=== PATIENT | female | born 1960 | race Caucasian/White ===

== ENCOUNTER 2017-08-25 15:19 | Outpatient (CLI) | payer BC | END 2017-08-25 15:20 | disposition home or self-care (01) | LOC: BICMAMMO 15:19 | PROVIDERS: ATTEND Family Medicine | DX: Z00.00 Encounter for general adult medical examination without abnormal findings (principal) | CPT/HCPCS: 77063; 77067 ==

== ENCOUNTER 2017-11-21 11:07 | Inpatient (IN) | payer BC ==
--- NOTE | 2017-11-21 12:12 | RAD ---
CHEST 1 VIEW: HISTORY: Chest pain. COMPARISON: Chest radiograph 2015. FINDINGS: There is left basilar airspace opacity. There are some faint right lower lobe airspace opacities. N o pneumothorax. No large effusion. IMPRESSION: Multifocal airspace opacities concerning for a multifocal infection. Followup after treatment recomm ended. POS: [facility]
[2017-11-21 12:16] LABS: Hemoglobin 13.1 g/dL (12.0-16.0); Mean Corpuscular HGB CONC 32.6 g/dL (32.0-36.0); Mean Corpuscular Hemoglobin 30.8 pg (27.0-31.0); Mean Corpuscular Volume 94.5 fL (78.0-98.0); Mean Platelet Volume 7.3 fL (7.4-10.4); Platelet Count 416 thou/uL (130-400); RBC Distribution Width 11.7 % (11.5-14.5); Red Blood Cell (RBC) Count 4.25 mill/uL (4.20-5.40)
[2017-11-21] MEDS ORDERED: Sodium Chloride 0.9% 100 ML ONE (12:16)
[2017-11-21] MEDS ORDERED: Azithromycin 500 MG VIAL ONE (12:16)
[2017-11-21] MEDS ORDERED: cefTRIAXone\\ROCEPHIN 1 GM VIAL ONE (12:16)
[2017-11-21] MEDS ORDERED: Ketorolac Tromethamine 30 MG/ML VIAL ONE (12:16)
[2017-11-21] MEDS ORDERED: Acetaminophen 500 MG TAB ONE (12:16)
[2017-11-21 12:30] LABS: ALT (SGPT) 13 U/L (8-55); AST (SGOT) 10 U/L (5-34); Albumin 3.5 g/dL (3.5-5.0); Alkaline Phosphatase 116 U/L (40-150); Anion Gap 13 mmol/L (10-20); BUN (Urea Nitrogen) 12 mg/dL (9.8-20.1); Bilirubin, Total 1.1 mg/dL (0.2-1.2); Calc. Creatinine Clearance 0 mL/min (70-130); Calcium 9.1 mg/dL (7.8-10.44); Carbon Dioxide 26 mmol/L (22-29); Chloride 101 mmol/L (98-107); Estimated GFR-MDRD 77; Globulin 3.5 g/dL (2.4-3.5); Glucose 131 mg/dL (70-105); Potassium 3.4 mmol/L (3.5-5.1); Sodium 137 mmol/L (136-145)
[2017-11-21 12:45] LABS: White Blood Cell (WBC) Count 27.6 thou/uL (4.8-10.8)
[2017-11-21 13:35] LABS: Band 3 % (5-11); Eosinophils 1 % (0-10); Lymphocytes 5 % (21-51); MDiff Complete? YES; Monocytes 5 % (0-10); Neutrophil 86 % (42-75); PLT Morphology Comment Appears Adequate; RBC Morphology Normal
[2017-11-21] MEDS ORDERED: Acetaminophen 325 MG TAB PO PRN (14:22)
[2017-11-21 14:54] VITALS: BMI 33.6
[2017-11-21] MEDS ORDERED: Azithromycin 500 MG in Sodium Chloride 0.9% 250 ML 250 ML IVPB SCH (15:00)
--- NOTE | 2017-11-21 19:49 | HP ---
DATE OF ADMISSION: 11/21/2017 PRIMARY CARE PHYSICIAN: Dr. Power Collado. CHIEF COMPLAINT: Cough and shortness of breath. HISTORY OF PRESENT ILLNESS: This is a 57-year-old female smoker, is a patient of Dr. Power Collado's, presents to the emergency department with 1 week of worsening cough, fever, and shortness of breath. The patient states that she presented to outpatient office on 11/17/2017 with cough and fever, was diagnosed and treated for presumptive influenza, started on Tamiflu at that time due to her cough, leobardo dy aches, and temperature up to 101. She states that her lung exam was normal at that time. She did not improve with the Tamiflu and 2 days ago called the office stating that she was still sick and wa s not able to be seen on that day. Over the weekend, she continued to worsen. She presented to the emergency department and was found to be mild to moderately hypoxic until they put oxygen on, continu ed to have cough and fever up to 101. On workup, she was found to have a multilobar pneumonia and is now being admitted for further evaluation and treatment. PAST MEDICAL HISTORY: Positive smoking, positive hypertension, positive COPD and asthma. MEDICATIONS: Symbicort daily, blood pressure medicine. She is uncertain of the name. PAST SURGICAL HISTORY: x4, back surgery x2, history of total abdominal hysterectomy. ALLERGIES: CODEINE and possible SULFA, but she is uncertain. FAMILY HISTORY: Noncontributory. REVIEW OF SYSTEMS: As per the history of present illness. General: Positive fever, positive chills . Positive myalgias. HEENT: No headache, visual or hearing changes. Positive upper respiratory co ngestion. Cardiac: Denies chest pain or palpitations. Pulmonary: Positive cough, positive shortne ss of breath, no hemoptysis. Gastrointestinal: Some nausea, no vomiting or diarrhea. Genitourinary : No dysuria or hematuria. Neurologic: Denies weakness, seizures, or syncope. PHYSICAL EXAMINATION: VITAL SIGNS: Temperature up to 101, pulse of 75 and regular, respirations 14-16, blood pressure 135/ 80, pulse ox down to 94% on room air and up to 95%-98% on 2 liters nasal cannula. GENERAL: She is awake, alert, in no acute distress. Speech is clear. Mucosa is moist. NECK: Supple. HEART: Regular rate and rhythm. LUNGS: With decreased breath sounds throughout. Positive rhonchi, worse on the left lower lobe. ABDOMEN: Soft. EXTREMITIES: No clubbing, cyanosis or edema, 2+ peripheral pulses bilaterally. LABORATORY DATA: White blood cell count 27,600, hemoglobin and hematocrit 13.1 and 40.2, platelets 4 16, neutrophils 86%, bands 3%, lymphocytes, 5%. Sodium 137, potassium 3.4, chloride 101, CO2 of 26, BUN and creatinine 12 and 0.77. Serum glucose of 131. Lactic acid was normal at 1.3. Chest x-ray r evealed multilobar infiltrate with more consolidation in the left base. No effusion. ASSESSMENT AND PLAN: 1. This is a 57-year-old female smoker with a history of chronic obstructive pulmonary disease and h ypertension, now with multifocal pneumonia and chronic obstructive pulmonary disease exacerbation. W e will admit to the general medical floor. We will continue antibiotics, neb treatments, and steroid s. 2. Hypertension. We will continue her home medications. We will recheck chest x-ray and labs in th e morning. 3. Deep vein thrombosis prophylaxis with Lovenox. 4. GI protection with Protonix while starting steroids.
[2017-11-22 05:43] LABS: ALT (SGPT) 12 U/L (8-55); AST (SGOT) 10 U/L (5-34); Albumin 3.1 g/dL (3.5-5.0); Alkaline Phosphatase 113 U/L (40-150); Anion Gap 11 mmol/L (10-20); BUN (Urea Nitrogen) 14 mg/dL (9.8-20.1); Bilirubin, Total 0.4 mg/dL (0.2-1.2); Calc. Creatinine Clearance 108 mL/min (70-130); Calcium 9.2 mg/dL (7.8-10.44); Carbon Dioxide 25 mmol/L (22-29); Chloride 105 mmol/L (98-107); Estimated GFR-MDRD 77; Globulin 3.2 g/dL (2.4-3.5); Glucose 179 mg/dL (70-105); Potassium 3.6 mmol/L (3.5-5.1); Protein, Total 6.3 g/dL (6.0-8.3); Sodium 137 mmol/L (136-145)
[2017-11-22 06:08] LABS: Band 1 % (5-11); Hemoglobin 11.7 g/dL (12.0-16.0); Lymphocytes 2 % (21-51); MDiff Complete? YES; Mean Corpuscular HGB CONC 32.3 g/dL (32.0-36.0); Mean Corpuscular Hemoglobin 30.7 pg (27.0-31.0); Mean Corpuscular Volume 95.3 fL (78.0-98.0); Mean Platelet Volume 7.7 fL (7.4-10.4); Monocytes 1 % (0-10); Neutrophil 96 % (42-75); PLT Morphology Comment Appears Adequate; Platelet Count 383 thou/uL (130-400); RBC Distribution Width 11.8 % (11.5-14.5); RBC Morphology Normal; Red Blood Cell (RBC) Count 3.81 mill/uL (4.20-5.40); White Blood Cell (WBC) Count 26.4 thou/uL (4.8-10.8)
--- NOTE | 2017-11-22 07:56 | RAD ---
PORTABLE CHEST: History: Pneumonia. Comparison: 11-21-17 FINDINGS: Confluent infiltrate in the left mid and lower lung is again seen. Patchy areas of opacity in the rig ht lower lung are less pronounced than on the current study. IMPRESSION: Persistent infiltrate in the left mid and lower lung. POS: [facility]
[2017-11-22] MEDS: Enoxaparin Sodium 40 MG/0.4 ML SYRINGE SC SCH (09:05)
[2017-11-22] MEDS: cefTRIAXone\\ROCEPHIN 1 GM in Sodium Chloride 0.9% 100 ML IVPB SCH (12:22)
[2017-11-22] MEDS: Ibuprofen 600 MG TAB PO PRN ×2 (12:25→19:56)
--- NOTE | 2017-11-22 13:06 | PRG ---
DATE OF SERVICE: 11/22/2017 HISTORY OF PRESENT ILLNESS: The patient remains dyspneic after a small activity such as taking a rozina wer today. She was able to do so with oxygen needs however, still saturating in the low 90s on 2-3 l iters nasal cannula. The patient continues to wheeze, feels more comfortable on oxygen. No reported fevers. The patient states she has had a longstanding history of hematuria and was supposed to have a CAT scan performed today on an outpatient basis. Denies any current flank pain, but does report d ysuria. She has been on antibiotics for pneumonia, Rocephin and azithromycin since admission. The p atient denies any gross hematuria. However, review of outpatient chart shows that hematuria has occu rred since 2013. Last known clear sample was in 2009. VITAL SIGNS: Temperature of 97.7, pulse of 106. Respiratory rate of 20, oxygen saturation 91% on 3 liters nasal cannula, blood pressure 118/80. LABORATORY DATA: White blood cell count of 26.4, platelet count of 383. Sodium 137, potassium of 3. 6, creatinine of 0.77, glucose of 179. AST of 10, ALT of 12, albumin of 3.1. Chest x-ray this a.m.; continued left mid and lower lung infiltrates. PHYSICAL EXAMINATION: GENERAL: The patient is alert and oriented, short of breath following a shower. Nasal cannula in pl sai. HEENT: Head is normocephalic, atraumatic. Extraocular movements are intact. Oral mucosa is moist. NECK: Supple. HEART: Tachycardic, but regular rhythm. LUNGS: Diminished bilateral bases. Bronchial breath sounds with expiratory wheezes bilaterally. ABDOMEN: Soft, nontender, positive bowel sounds throughout. No CVA tenderness, no suprapubic tender ness currently. EXTREMITIES: Lower extremities without cyanosis or edema. NEUROLOGIC: The patient is alert and oriented x3, no focal deficits. Speech is normal. ASSESSMENT AND PLAN: Community-acquired pneumonia, chronic obstructive pulmonary disease exacerbatio n, hypertension, acute respiratory failure requiring oxygen. Hematuria. We will follow up on urinalysis. If any hematuria given the patient's dysuria despite antibiotic michelle atment, we will potentially perform CT while inpatient. Blood cultures no growth at 24 hours. Sched uling breathing treatments. The patient is still actively wheezing. Since the patient is not in ICU we will move to oral steroids. Continue IV antibiotics for pneumonia, community acquired. Continui ng home blood pressure medication for hypertension.
[2017-11-22] MEDS ORDERED: Azithromycin 500 MG in Sodium Chloride 0.9% 250 ML 250 ML IVPB SCH (15:00)
[2017-11-22 20:16] LABS: Bilirubin Negative (Negative); Blood, Urine Trace (Negative); Clarity CLEAR (Clear); Glucose, Urine (Dipstick) Negative (Negative); Leukocyte Negative (Negative); Nitrite Negative (Negative); Protein, Urine (Dipstick) Negative (Neg-Trace); Urobilinogen 0.2 mg/dL (0.2-1.0); pH, Urine 6.5 (5.0-9.0)
[2017-11-22 20:19] LABS: Bacteria/HPF None Seen HPF (None Seen); Hyaline Casts/LPF 0-3 HYALINE CAST LPF (0-3 Hyaline); Pathc Cast-AUWi Flag 0.58 (0-2.49); Squamous Epithelial 0-3 HPF (0-3); WBC/HPF None Seen HPF (0-3)
[2017-11-22 22:35] LABS: Creatinine, Urine 41.83 mg/dL (47-110); Microalbumin Urine Less than 1.0 mg/dL (0.5-50.0)
[2017-11-22] MEDS ORDERED: diphenhydrAMINE 25 MG CAP PO PRN (22:35)
[2017-11-23 05:19] LABS: Band 9 % (5-11); Hemoglobin 10.8 g/dL (12.0-16.0); Hypochromia SLIGHT = 6-15 cells (100X) (0-5/hpf); Lymphocytes 2 % (21-51); MDiff Complete? YES; Mean Corpuscular HGB CONC 31.9 g/dL (32.0-36.0); Mean Corpuscular Hemoglobin 30.3 pg (27.0-31.0); Mean Platelet Volume 7.8 fL (7.4-10.4); Monocytes 6 % (0-10); Neutrophil 83 % (42-75); PLT Morphology Comment Appears Adequate; Platelet Count 414 thou/uL (130-400); Red Blood Cell (RBC) Count 3.56 mill/uL (4.20-5.40); White Blood Cell (WBC) Count 32.6 thou/uL (4.8-10.8)
[2017-11-23] MEDS: Ibuprofen 600 MG TAB PO PRN ×2 (06:23→21:10)
[2017-11-23] MEDS ORDERED: predniSONE 20 MG TAB PO SCH (08:00)
[2017-11-23] MEDS: Enoxaparin Sodium 40 MG/0.4 ML SYRINGE SC SCH (08:40)
[2017-11-23] MEDS: cefTRIAXone\\ROCEPHIN 1 GM in Sodium Chloride 0.9% 100 ML IVPB SCH (12:02)
--- NOTE | 2017-11-23 13:18 | PRG ---
DATE OF SERVICE: 11/23/2017 HISTORY OF PRESENT ILLNESS: The patient states she has had a more productive sputum following schedu led breathing treatments, still feels fatigued today on attempts to wean oxygen, saturations dipping into the high 80s off nasal cannula here at lunch for the first time today. The patient continues to not be able to ambulate very far, was sleeping on 3 liters nasal cannula this morning. Nursing staf f has no additional complaints or reports other than the left forearm IV site infiltrated. CT clarif ied protocol for a hematuria protocol as well as the patient's contrast allergy. The patient will be prophylaxed with antihistamines prior to potential first thing in the morning, CT hematuria protocol . PHYSICAL EXAMINATION: REVIEW OF VITAL SIGNS: Temperature of 98.2, pulse is 74, respiratory rate of 20, oxygen saturation 9 4% on 3 liters nasal cannula, blood pressure 100/60. GENERAL: The patient is alert and oriented, in no acute distress. HEENT: Head is normocephalic, atraumatic. Extraocular movements are intact. Sclerae are clear. Or al mucosa is moist. NECK: Supple. HEART: Regular rate and rhythm at time of exam. No murmurs auscultated. LUNGS: Clear to auscultation bilaterally, only moderate air movement; however, no wheezes or rales o r rhonchi. ABDOMEN: Soft, nontender, positive bowel sounds throughout. EXTREMITIES: Lower extremities without cyanosis or edema. NEUROLOGIC: The patient is alert and oriented x3, no focal deficits. Speech is normal. LABORATORY DATA: White blood cell count of 32.6, hemoglobin of 10.8, platelet count of 414. Culture s remain negative. ASSESSMENT AND PLAN: Acute respiratory failure, requiring oxygen, secondary to community-acquired pn eumonia and chronic obstructive pulmonary disease exacerbation and hematuria following up on CT scan as able. Otherwise, we will get on an outpatient basis. The patient is scheduled first thing in the morning for CT hematuria protocol of abdomen. Given the patient's fatigue and poor ambulation, we w ill likely observe patient on 24 hours of oral antibiotics down from IV and our continued scheduled b reathing treatments, likely potential discharge tomorrow. We will continue our steroids at this poin t in time.
[2017-11-23] MEDS ORDERED: Azithromycin 250 MG TAB PO SCH (15:00)
[2017-11-23] MEDS: Mometasone/Formoterol 120 PUFF INHALER INH SCH (18:56)
[2017-11-23] MEDS: predniSONE 50 MG TAB PO SCH (20:34)
[2017-11-23] MEDS: Amoxicillin/Potassium Clav 875 MG TAB PO SCH (20:34)
[2017-11-24 00:43] VITALS: BP 122/71; TEMP 98.1
[2017-11-24] MEDS: predniSONE 50 MG TAB PO SCH ×2 (01:59→08:05)
[2017-11-24] MEDS: Mometasone/Formoterol 120 PUFF INHALER INH SCH ×2 (07:00→14:22)
[2017-11-24] MEDS ORDERED: diphenhydrAMINE 50 MG CAP PO SCH (08:00)
[2017-11-24] MEDS: Amoxicillin/Potassium Clav 875 MG TAB PO SCH (08:06)
[2017-11-24] MEDS: Enoxaparin Sodium 40 MG/0.4 ML SYRINGE SC SCH (08:06)
--- NOTE | 2017-11-24 10:16 | CT ---
CT SCAN ABDOMEN AND PELVIS WITH AND WITHOUT IV CONTRAST WITH MULTIPHASE IMAGING: HISTORY: A 57-year-old female with a history of hematuria. FINDINGS: Minimal patchy pleural-based parenchymal changes in the right middle lobe with some pleural thickenin g. Bilateral posterior pleural fluid or pleural thickening. Multiple subpleural nodules in the righ t lower lobe, up to approximately 0.6 cm. The liver, gallbladder, pancreas, spleen, and adrenal glan ds are unremarkable. No evidence for renal calculus or acute obstruction. There are duplication changes of both upper renal collecting systems and ureters. The urinary bladder appears unremarkable . Status post hysterectomy. IMPRESSION: 1. 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 No renal calculus or genitouri nary obstruction. 2. Postoperative laminectomy changes of the lower lumbar spine. 3. Status post hysterectomy. 4. Minimal pleural fluid or pleural thickening noted bilaterally, greater in the left base, with ketan e small, less than 0.6 cm in diameter subpleural nodules, particularly in the right lower lobe, and a lso some right middle lobe scarring and pleural thickening. POS: [facility]
--- NOTE | 2017-11-25 02:59 | DIS ---
DATE OF ADMISSION: 11/21/2017 DATE OF DISCHARGE: 11/24/2017 PRIMARY CARE PHYSICIAN: Dr. Power Collado. PRESENTING CHIEF COMPLAINT: Shortness of breath. HISTORY OF PRESENT ILLNESS: The patient diagnosed with community-acquired pneumonia following negative flu testing or empiric treatment of flu with a Tamiflu an outpatient basis with Dr. Power Collado. Patient with longstanding history of tobacco use. No reported COPD medications; however, the patient diagnosed with disease exacerbation based on chest x-ray and wheezing on exam. Patient was titrated on breathing treatments, steroids, antibiotics with controlled wheezing. Patient with a history of hematuria over the last 4 years , was pending hematuria CAT scan on an outpatient basis actually at this time of hospitalization confirmed the continuation of hematuria on laboratory work while inpatient. Hematuria protocol CT was performed. Patient was found to have duplicated renal collecting system as well. No renal calculi, no obstructions, no suggestions of masses. Bottom of the lungs did not show any further pneumonia on CT prior to the discharge. Patient still required oxygen therapy desaturating down to 89 on 2 liters nasal cannula while talking, required 3 liters nasal cannula while sleeping desaturated into the 80s off oxygen. Patient was able to ambulate to the restroom while on oxygen. Patient discharged home with home health oxygen continuation of IV antibiotics with Augmentin initiation of Dulera, continued albuterol rescue inhaler efforts, continued prednisone for steroid coverage. Follow up with Dr. Power Collado in his clinic in the next 7 days, preferably Wednesday or Wednesday next week. DISCHARGE DIET: Regular. DISCHARGE ACTIVITY: Restricted to ADLs and short walks while on oxygen until cleared. DISCHARGE PROGNOSIS: Fair. Prior to discharge, blood cultures were negative. D/C Medications: Augmentin 875 Dulera 200 Prednisone 40mg x 5 days Home oxygen 3LNC continuous Resume Prior home medications. MTDD
[2017-11-25] MEDS ORDERED: predniSONE 20 MG TAB PO SCH (08:00)
== END 2017-11-24 18:38 | disposition home or self-care (01) | DRG 193 ==
LOC: ERS 11:07 → T4-A 14:21
PROVIDERS: ADMIT Family Medicine; ATTEND Family Medicine
DX: J18.9 Pneumonia, unspecified organism (principal); J96.01 Acute respiratory failure with hypoxia; J44.1 Chronic obstructive pulmonary disease with (acute) exacerbation; J44.0 Chronic obstructive pulmonary disease with (acute) lower respiratory infection; I10 Essential (primary) hypertension; J45.909 Unspecified asthma, uncomplicated; F17.210 Nicotine dependence, cigarettes, uncomplicated; Z79.899 Other long term (current) drug therapy; Z88.5 Allergy status to narcotic agent; Z88.2 Allergy status to sulfonamides; R31.9 Hematuria, unspecified
CPT/HCPCS: 36415; 71045; 74178; 80053; 81001; 82043; 83605; 85025; 87040; 94640; 94799; 96361; 96365; 96367; 96375; J0456; J0696; J1650; J1885; J2920; J7050; J7506; J7620

== ENCOUNTER 2018-01-25 13:22 | Outpatient (CLI) | payer BC ==
--- NOTE | 2018-01-25 14:17 | RAD ---
TWO VIEWS OF THE CHEST: Comparison: 11-22-17 History: Dyspnea. FINDINGS: Two views of the chest show normal sized cardiomediastinal silhouette. There is no evidence of consol idation, mass, or pleural effusion. The bones are unremarkable. IMPRESSION: No evidence of acute cardiopulmonary disease. POS: [facility]
== END 2018-01-25 13:23 | disposition home or self-care (01) ==
LOC: RAD 13:22
PROVIDERS: ATTEND Internal Medicine
DX: R06.00 Dyspnea, unspecified (principal)
CPT/HCPCS: 71046

== ENCOUNTER 2018-03-21 16:00 | Outpatient (CLI) | payer BC | END 2018-03-21 16:01 | disposition home or self-care (01) | LOC: SLEEPLAB 16:00 | PROVIDERS: ATTEND Internal Medicine | DX: G47.33 Obstructive sleep apnea (adult) (pediatric) (principal); R53.83 Other fatigue; R09.89 Other specified symptoms and signs involving the circulatory and respiratory systems; R51 Headache; R35.1 Nocturia; R06.83 Snoring; I10 Essential (primary) hypertension; G47.00 Insomnia, unspecified | CPT/HCPCS: 95806 ==

== ENCOUNTER 2019-09-15 14:01 | Outpatient (CLI) | payer BC ==
--- NOTE | 2019-09-15 14:38 | MMO ---
Bilateral MAMMO Bilat Screen [facility]. CLINICAL HISTORY: Patient is 58 years old and is seen for screening. The patient has no family history of breast cancer. The patient has no personal history of cancer. VIEWS: The views performed were: bilateral craniocaudal with tomosynthesis and bilateral mediolateral oblique with tomosynthesis. FILMS COMPARED: The present examination has been compared to prior imaging studies performed at [facility] on 08/25/2017, and at [facility] on 07/19/2015. This study has been interpreted with the assistance of computer-aided detection. MAMMOGRAM FINDINGS: There are scattered fibroglandular densities. There are no suspicious masses, suspicious calcifications, or new areas of architectural distortion. IMPRESSION: THERE IS NO MAMMOGRAPHIC EVIDENCE OF MALIGNANCY. A ROUTINE FOLLOW-UP MAMMOGRAM IN 1 YEAR IS RECOMMENDED. THE RESULTS OF THIS EXAM WERE SENT TO THE PATIENT. ACR BI-RADS Category 1 - Negative MAMMOGRAPHY NOTE: 1. A negative mammogram report should not delay a biopsy if a dominant of clinically suspicious mass is present. 2. Approximately 10% to 15% of breast cancers are not detected by mammography. 3. Adenosis and dense breasts may obscure an underlying neoplasm. Reported by: SWATI RIOS MD Electonically Signed: [id number]
== END 2019-09-15 14:02 | disposition home or self-care (01) ==
LOC: BICMAMMO 14:01
PROVIDERS: ATTEND Family Medicine
DX: Z12.31 Encounter for screening mammogram for malignant neoplasm of breast (principal)
CPT/HCPCS: 77063; 77067